=== PATIENT | male | born 1960 | race Caucasian/White ===

== ENCOUNTER 2017-01-08 16:05 | Emergency (ER) | payer BC ==
[2017-01-08 18:15] LABS: Hematocrit 44 % (42-52); Hemoglobin 15.3 g/dl (14.0-18.0); Mean Corpuscular HGB Conc 35 g/dl (31-36); Mean Corpuscular Hemoglobin 34 pg (27-31); Mean Corpuscular Volume 98 fL (80-94); Mean Platelet Volume 8 um3 (7.4-10.4); Red Cell Distribution Width 12 % (10.5-15); White Blood Count 7.8 10^3/ul (3.5-10.8)
--- NOTE | 2017-01-08 18:19 | ED ---
Skin Complaint - HPI Summary HPI Summary: 56M presents with irritation around feeding tube since yesterday. He states the area was a little itchy last night and had some yellow discharge from the area. He denies any abdominal pain. He has had the feeding tube for a year and a half and has never had an issue. has tube do to history of throat cancer. no vomiting. no constipation or diarrhea. no fever. no spreading redness. he states today has no irritation from area and that is looks pretty much normal expect scant amount of yellow drainage. - History of Current Complaint Chief Complaint: EDGeneral Time Seen by Provider: 01/08/17 16:42 Stated Complaint: IRRITATION AROUND FEEDING TUBE-SENT FROM Pain Intensity: 0 - Allergy/Home Medications Allergies/Adverse Reactions: Allergies Allergy/AdvReac Type Severity Reaction Status Date / Time No Known Allergies Allergy Verified 10/04/14 11:14 PMH/Surg Hx/FS Hx/Imm Hx Endocrine/Hematology History: Denies: Hx Diabetes Cardiovascular History: Denies: Hx Hypertension, Hx Pacemaker/ICD Sensory History: Reports: Hx Contacts or Glasses - READING Denies: Hx Hearing Aid Opthamlomology History: Reports: Hx Contacts or Glasses - READING Psychiatric History: Reports: Hx Anxiety, Hx Depression Denies: Hx Panic Disorder - Surgical History Surgery Procedure, Year, and Place: DENTAL WORK. TONSILLECTOMY A CHILD Hx Anesthesia Reactions: No - Immunization History Immunizations Up to Date: Yes Infectious Disease History: No Infectious Disease History: Denies: Traveled Outside the [place] in Last 30 Days - Family History Known Family History: Positive: Hypertension - Social History Alcohol Use: Daily Alcohol Amount: 8-10/DAY Substance Use Type: Reports: None, Marijuana Substance Use Comment - Amount & Last Used: VERY RARE Smoking Status (MU): Former Smoker Type: Cigarettes Amount Used/How Often: 1 PPD Length of Time of Smoking/Using Tobacco: 35 YRS Have You Smoked in the Last Year: Yes Review of Systems Negative: Fever Negative: Chest Pain Negative: Shortness Of Breath Positive: Other - irritation around feeding tube All Other Systems Reviewed And Are Negative: Yes Physical Exam Triage Information Reviewed: Yes Vital Signs On Initial Exam: Initial Vitals Temp Pulse Resp BP Pulse Ox 96.9 F 90 20 154/88 100 01/08/17 16:11 01/08/17 16:11 01/08/17 16:11 01/08/17 16:11 01/08/17 16:11 Vital Signs Reviewed: Yes Appearance: Positive: Well-Appearing Skin: Positive: Warm, Dry, Other - 1cm erythema around feeding tube site with no warmth or tenderness Head/Face: Positive: Normal Head/Face Inspection Eyes: Positive: Normal, EOMI, ELIANA, Conjunctiva Clear ENT: Positive: Normal ENT inspection, Pharynx normal, TMs normal Respiratory/Lung Sounds: Positive: Clear to Auscultation, Breath Sounds Present Cardiovascular: Positive: Normal, RRR Abdomen Description: Positive: Nontender, Soft Bowel Sounds: Positive: Present Musculoskeletal: Positive: Normal Neurological: Positive: Normal Psychiatric: Positive: Normal - Steph Coma Scale Coma Scale Total: 15 Diagnostics - Vital Signs Vital Signs Temp Pulse Resp BP Pulse Ox 01/08/17 16:11 96.9 F 90 20 154/88 100 - Laboratory Result Diagrams: 01/08/17 17:56 01/08/17 17:56 Lab Statement: Any lab studies that have been ordered have been reviewed, and results considered in the medical decision making process. Course/Dx - Course Course Of Treatment: 56M presents with irritation around feeding tube since yesterday. He states the area was a little itchy last night and had some yellow discharge from the area. He denies any abdominal pain. He has had the feeding tube for a year and a half and has never had an issue. has tube do to history of throat cancer. no vomiting. no constipation or diarrhea. no fever. no spreading redness. he states today has no irritation from area and that is looks pretty much normal expect scant amount of yellow drainage. on exam has 1cm area of erythema around feeding tube site with no tenderness or warmth. nontender abdomen. drainage on bandage appears serosangerous. labs normal wbc, crp and lactic. will treat with topical antibiotic. gave oral antibiotic if notice any spreading redness. told to follow up with primary and to return for CT scan if develops any pain. patient understands and agrees with plan. - Differential Diagnoses - Skin Complaint Differential Diagnoses: Abscess, Cellulitis, Contact Dermatitis - Diagnoses Provider Diagnoses: erythema around feeding tube Discharge - Discharge Plan Condition: Good Disposition: HOME Prescriptions: Cephalexin SUSP* [Keflex SUSP 250 MG/5 ML*] 500 mg PO BID #1 bottle Mupirocin 2% CREAM* [Bactroban 2% CREAM*] 1 applic TOPICAL TID #1 tube Referrals: Bill Mckinley MD [Primary Care Provider] - Additional Instructions: Place Bactroban on area three times a day Script sent for antibiotic is not improving or if redness spreads start antibiotic take 10ml twice a day for 10 days Follow up with primary within 5 days Return to ED if develop fever, redness spreads, any new or worsening symptoms
[2017-01-08 18:25] LABS: Albumin 4.7 g/dL (3.2-5.2); BUN/Creatinine Ratio 14.8 (8-20); Calcium 10.1 mg/dL (8.6-10.3); EGFR African American 126.8 (>60); EGFR Non-African American 98.6 (>60); Globulin 3.2 g/dL (2-4); Potassium 4.6 mmol/L (3.5-5.0); Total Bilirubin 0.7 mg/dL (0.2-1.0); Total Protein 7.9 g/dL (6.4-8.9)
[2017-01-08] MEDS ORDERED: Mupirocin 2% CREAM* 15 GM TOPICAL ONE (18:33)
[2017-01-08 19:10] VITALS: BP 118/70
== END 2017-01-08 19:11 | disposition home or self-care (01) ==
LOC: ED 16:05
DX: K94.29 Other complications of gastrostomy (principal); F41.9 Anxiety disorder, unspecified; F32.9 Major depressive disorder, single episode, unspecified; Z87.891 Personal history of nicotine dependence
CPT/HCPCS: 36415; 80053; 83605; 85025; 86141; 99282; A9270-GY

== ENCOUNTER 2023-10-10 08:02 | Observation (INO) ==
[~2023-10-10 08:02] MED LIST: Midazolam 2 mg/2 ml VIAL 1 mg/ml 2 ml VIAL (2 mg) ONE; fentaNYL 100 mcg/2 ml 50 MCG/ML VIAL ONE
[2023-10-10] MEDS ORDERED: Chlorhexidine MOUTHWASH 0.12% 15 ML UDC ONE (08:23)
[2023-10-10] MEDS ORDERED: ceFAZolin 1 GM in Dextrose 2 GM/100 ML BAG ONE (08:26)
[2023-10-10] MEDS ORDERED: Naloxone 0.4 mg VIAL 0.4 mg/ml 1 ml VIAL IV PRN (08:49)
[2023-10-10 08:57] LABS: ABS Eosinophils 0.1 10^3/uL (0.0-0.5); ABS Monocytes 1.2 10^3/uL (0.0-1.1); ABS Neutrophils 3.8 10^3/uL (1.5-7.6); Eosinophil % 1.8 %; Hematocrit 43.9 % (38-53); Hemoglobin 15.6 g/dL (13.2-16.3); Lymphocyte % 16.4 %; Mean Corpuscular Hemoglobin 34.5 pg (27-33); Mean Corpuscular Hgb Conc 35.6 g/dL (31-36); Mean Corpuscular Volume 96.9 fL (80-97); Mean Platelet Volume 7.4 fL (7.5-11.2); Nucleated Red Blood Cells % 0.1 %/100WBC (0.0-0.8); Platelet Count 270 10^3/uL (150-450); Red Blood Count 4.52 10^6/uL (4.06-5.63); Red Cell Distribution Width 12.5 % (12-17); White Blood Count 6.2 10^3/uL (3.6-10.2)
[2023-10-10 09:14] LABS: Albumin 4.3 g/dL (3.2-5.2); Albumin/Globulin Ratio 1.3 (1-3); Calcium 9.2 mg/dL (8.6-10.3); Creatinine, Serum 0.8 mg/dL (0.67-1.17); Globulin 3.2 g/dL (2-4); Potassium 3.8 mmol/L (3.5-5.0); Total Bilirubin 0.6 mg/dL (0.2-1.0); Total Protein 7.5 g/dL (6.4-8.9); eGFR CKD-EPI 99.4 (>60)
[2023-10-10] MEDS ORDERED: Lidocaine 1% w EPI 1:100,000 MDV 20 ML VIAL ONE (09:21)
[2023-10-10] MEDS ORDERED: Thrombin 5,000 UNITS 1 APPLIC KIT - topical use - TOPICAL ONE (09:21)
[2023-10-10] MEDS ORDERED: ceFAZolin VIAL VIAL ONE (09:21)
[2023-10-10 09:36] LABS: Rapid COVID-19 Molecular Undetected (Undetected)
[2023-10-10] MEDS ORDERED: HYDROmorphone 0.5 MG/0.5 ML SYRINGE ONE (10:27)
[2023-10-10] MEDS ORDERED: Ondansetron 4 mg VIAL 2 MG/ML 2 ml VIAL IV PRN (11:24)
[2023-10-10] MEDS ORDERED: Morphine 2 MG/ML SYRINGE IV PRN (11:24)
[2023-10-10] MEDS ORDERED: Benzocaine/Menthol LOZ MT PRN (11:24)
[2023-10-10] MEDS ORDERED: Calcium Carb (TUMS) 500 mg CHEW TAB PO PRN (11:24)
[2023-10-10] MEDS ORDERED: Phenol 1.4% Throat Spray BTL MT PRN (11:24)
[2023-10-10] MEDS ORDERED: Dextran 70/Hypromellose Tears Eye Drops 15 ml BTL (for Artificials Tears) BOTH EYES PRN (11:24)
[2023-10-10] MEDS ORDERED: Senna TAB 8.6 mg TAB PO PRN (11:24)
[2023-10-10] MEDS ORDERED: HYDROmorphone 1 MG/1 ML SYRINGE ONE (11:44)
[2023-10-10] MEDS: HYDROmorphone 1 MG/1 ML SYRINGE IV PRN (11:51)
[2023-10-10] MEDS: Lactated Ringers 1000 ml BAG 1,000 ML IV SCH ×2 (12:43→16:36)
[2023-10-10] MEDS: Buffered Lidocaine 1% SYRIN 1 ml INTRADERM ONE (12:43)
[2023-10-11] MEDS: ALENDRONATE 5 MG PO SCH (09:25)
[2023-10-11 11:21] VITALS: BP 119/67
== END 2023-10-11 12:35 | disposition home or self-care (01) ==
LOC: SSU 08:02 → OR 08:02
PROVIDERS: ADMIT Neurological Surgery; ATTEND Neurological Surgery